=== PATIENT | female | born 1995 | race Caucasian/White ===

== ENCOUNTER 2017-07-11 16:59 | Emergency (ER) | payer OTHER ==
[2017-07-11] MEDS ORDERED: NS 1,000 ML IV ONE (17:31)
--- NOTE | 2017-07-11 17:31 | EDPHY ---
General Time Seen by Provider: 07/11/17 17:23 Narrative: CHIEF COMPLAINT: Pelvic pain, vaginal bleeding HISTORY OF PRESENT ILLNESS: Patient presents with complaints of 4 hr pelvic pain and 1 hr of vaginal bleeding. She has bilateral lower pelvic pain, right greater than left. The pain is consistent with previous episodes of ovarian cyst rupturing. Source with palpation and movement. It is moderate to severe. Does not radiate. No fever chills. Chronic nausea without any new vomiting. She also has 1 hr of heavy vaginal bleeding. Today was the start of her menses, but it is a heavier flow than typical. She has no vaginal pain or discharge prior to this. No trauma, injury or instrumentation. No other associated complaints or modifying factors. NPO as of noon today REVIEW OF SYSTEMS: Ten systems reviewed and are negative unless otherwise noted in the HPI PCP: Dr. Barkley in [place], [place] SPECIALISTS: None PAST MEDICAL HISTORY: Ovarian cyst, depression, anxiety PAST SURGICAL HISTORY: No surgical history SOCIAL HISTORY: Nonsmoker. Occasional alcohol. Occasional marijuana use. Lives and works in [facility] FAMILY HISTORY: Noncontributory EXAMINATION General Appearance: Alert, no distress. Well-nourished and well-developed. Head: normocephalic, atraumatic Eyes: Pupils equal and round, no conjunctival pallor or injection ENT, Mouth: Mucous membranes moist Neck: Normal inspection, supple, non-tender Respiratory: Lungs are clear to auscultation. No wheezing, rhonchi or crackles Cardiovascular: Regular rate and rhythm. No murmur Gastrointestinal: Abdomen is soft and nondistended. There is tenderness of the lower quadrants and suprapubic abdomen. No tympany. No rigidity. No guarding. Negative McBurney. Negative obturator. Negative heel jar. No CVA tenderness. Back: non-tender, no bony abnormalities Neurological: A&O, nonfocal, normal gait Skin: Warm and dry, no rash. Multiple tattoos. No petechiae or purpura Extremities: Nontender, no pedal edema Psychiatric: Mood and affect normal DIFFERENTIAL DIAGNOSES: Including but not limited to ovarian cyst, ovarian torsion, appendicitis, enteritis, colitis, diverticulitis, pelvic inflammatory disease, interstitial cystitis, UTI MDM: 5:30 p.m. Pelvic pain right greater than left with vaginal bleeding heavier than typical for her menses. She does have a history of ovarian cyst and she feels this is the same. Abdominal exam reveals tenderness in right lower quadrant and suprapubic. She has no evidence of acute abdomen. Vital signs are within normal limits. No CVA tenderness. I have ordered laboratory studies, IV fluid , pelvic ultrasound to rule out torsion and appendix ultrasound. She is resting comfortably in no acute distress. 5:55 p.m. Laboratory studies are all within normal limits. Ultrasounds are pending. 6:40 p.m. Notified by radiologist Dr. Blackwood. Ultrasounds are negative for any significant findings. There are multiple follicular cyst. There is no free fluid in the pelvis. No fluid surrounding the appendix. There is some lymphadenopathy appreciated. 6:55 p.m. I have re-evaluated the patient. She is resting comfortably with minimal pain. We discussed the laboratory studies and ultrasound findings. We discussed further imaging with CT scan. She does not want a CT scan at this time. I do feel that this is reasonable as I do not have a high suspicion for appendicitis and she has a nonsurgical abdominal examination. We discussed discharge home with short course of pain medication and nausea medication. We discussed strict ED precautions. I would like her to return to the emergency department in 12 hr if her symptoms are not completely gone. She informed that she will be driving back to [facility] and I instructed her to go to the emergency department there if she wakes with any pain in the morning. She is comfortable this plan and discharged home stable condition. SUPERVISION: Patient was independently examined, but I discussed the case with my secondary supervising physician Dr. Mijares - Diagnostics Imaging Results: Imaging Impressions Abdomen Ultrasound 07/11/17 17:31 Impression: 1. Negative limited right lower quadrant ultrasound, specifically, there are no secondary findings to support a clinical diagnosis of acute appendicitis. 2. Query mesenteric adenitis. Results called and discussed with Slade Galicia PA-C on 07/11/2017 at 18:37 Pelvic/Renal Ultrasound 07/11/17 17:31 Impression: Normal pelvic ultrasound with no evidence for ovarian torsion. Results called and discussed with Slade NORTH on 07/11/2017 at 18:41 - History Smoking Status: Former smoker - Objective Vital Signs: Initial Vital Signs Temperature (C) 98.1 F 07/11/17 17:09 Heart Rate 83 07/11/17 17:09 Respiratory Rate 17 07/11/17 17:09 Blood Pressure 104/65 07/11/17 17:09 O2 Sat (%) 99 07/11/17 17:09 O2 Delivery Mode Room Air Allergies/Adverse Reactions: No Known Allergies Allergy (Unverified 07/11/17 17:09) Home Medications: Medication Instructions Recorded Hydrocodone/APAP 5/325 [[place] 1 - 2 tab PO Q4H PRN #7 tab 07/11/17 5/325 (*)] Lexapro 07/11/17 Promethazine HCl [Phenergan 25mg 25 mg PO Q8 PRN #7 tab 07/11/17 (*)] Laboratory Results: Laboratory Results 07/11/17 17:25 07/11/17 17:25 07/11/17 07/11/17 07/11/17 18:00 17:25 17:25 WBC RBC Hgb Hct MCV MCH MCHC RDW Plt Count MPV Neut % (Auto) Lymph % (Auto) Boyd % (Auto) Eos % (Auto) Baso % (Auto) Nucleat RBC Rel Count Absolute Neuts (auto) Absolute Lymphs (auto) Absolute Monos (auto) Absolute Eos (auto) Absolute Basos (auto) Absolute Nucleated RBC Immature Gran % Immature Gran # Sodium 138 mEq/L mEq/L (135-145) Potassium 4.2 mEq/L mEq/L (3.5-5.2) Chloride 105 mEq/L mEq/L (97-110) Carbon Dioxide 23 mEq/l mEq/l (22-31) Anion Gap 10 mEq/L mEq/L (8-16) BUN 12 mg/dL mg/dL (7-23) Creatinine 0.8 mg/dL mg/dL (0.6-1.0) Estimated GFR > 60 Glucose 84 mg/dL mg/dL (70-100) Calcium 9.7 mg/dL mg/dL (8.5-10.4) Total Bilirubin 0.4 mg/dL mg/dL (0.1-1.4) Conjugated Bilirubin 0.2 mg/dL mg/dL (0.0-0.5) Unconjugated Bilirubin 0.2 mg/dL mg/dL (0.0-1.1) AST 28 IU/L IU/L (14-46) ALT 35 IU/L IU/L (9-52) Alkaline Phosphatase 56 IU/L IU/L (38-126) Total Protein 7.7 g/dL g/dL (6.3-8.2) Albumin 4.7 g/dL g/dL (3.5-5.0) Lipase 55 IU/L IU/L (23-300) Beta HCG, Qual Urine Color PALE YELLOW Urine Appearance CLEAR Urine pH 6.0 (5.0-7.5) Ur Specific Lamar 1.011 (1.002-1.030) Urine Protein NEGATIVE (NEGATIVE) Urine Ketones NEGATIVE (NEGATIVE) Urine Blood NEGATIVE (NEGATIVE) Urine Nitrate NEGATIVE (NEGATIVE) Urine Bilirubin NEGATIVE (NEGATIVE) Urine Urobilinogen NEGATIVE EU EU (0.2-1.0) Ur Leukocyte Esterase NEGATIVE (NEGATIVE) Urine RBC NONE SEEN /hpf /hpf (0-3) Urine WBC NONE SEEN /hpf /hpf (0-3) Ur Epithelial Cells TRACE /lpf /lpf (NONE-1+) Urine Mucus TRACE /lpf /lpf (NONE-1+) Urine Glucose NEGATIVE (NEGATIVE) 07/11/17 07/11/17 17:25 17:25 WBC 7.99 10^3/uL 10^3/uL (3.80-9.50) RBC 4.14 10^6/uL L 10^6/uL (4.18-5.33) Hgb 13.1 g/dL g/dL (12.6-16.3) Hct 39.4 % % (38.0-47.0) MCV 95.2 fL fL (81.5-99.8) MCH 31.6 pg pg (27.9-34.1) MCHC 33.2 g/dL g/dL (32.4-36.7) RDW 12.0 % % (11.5-15.2) Plt Count 295 10^3/uL 10^3/uL (150-400) MPV 10.1 fL fL (8.7-11.7) Neut % (Auto) 56.1 % % (39.3-74.2) Lymph % (Auto) 31.3 % % (15.0-45.0) Boyd % (Auto) 8.3 % % (4.5-13.0) Eos % (Auto) 3.1 % % (0.6-7.6) Baso % (Auto) 0.9 % % (0.3-1.7) Nucleat RBC Rel Count 0.0 % % (0.0-0.2) Absolute Neuts (auto) 4.49 10^3/uL 10^3/uL (1.70-6.50) Absolute Lymphs (auto) 2.50 10^3/uL 10^3/uL (1.00-3.00) Absolute Monos (auto) 0.66 10^3/uL 10^3/uL (0.30-0.80) Absolute Eos (auto) 0.25 10^3/uL 10^3/uL (0.03-0.40) Absolute Basos (auto) 0.07 10^3/uL 10^3/uL (0.02-0.10) Absolute Nucleated RBC 0.00 10^3/uL 10^3/uL (0-0.01) Immature Gran % 0.3 % % (0.0-1.1) Immature Gran # 0.02 10^3/uL 10^3/uL (0.00-0.10) Sodium Potassium Chloride Carbon Dioxide Anion Gap BUN Creatinine Estimated GFR Glucose Calcium Total Bilirubin Conjugated Bilirubin Unconjugated Bilirubin AST ALT Alkaline Phosphatase Total Protein Albumin Lipase Beta HCG, Qual NEGATIVE Urine Color Urine Appearance Urine pH Ur Specific Lamar Urine Protein Urine Ketones Urine Blood Urine Nitrate Urine Bilirubin Urine Urobilinogen Ur Leukocyte Esterase Urine RBC Urine WBC Ur Epithelial Cells Urine Mucus Urine Glucose Medications Given: Discontinued Medications Sodium Chloride (Ns) 1,000 mls @ 0 mls/hr IV EDNOW ONE; Wide Open PRN Reason: Protocol Stop: 07/11/17 17:32 Last Admin: 07/11/17 17:35 Dose: 1,000 mls Ketorolac Tromethamine (Toradol) 30 mg IVP EDNOW ONE Stop: 07/11/17 18:00 Last Admin: 07/11/17 18:20 Dose: 30 mg Departure - Departure Disposition: Home, Routine, Self-Care Clinical Impression: Pelvic pain in female Condition: Good Instructions: Ovarian Cyst (ED), Pelvic Pain in Women (ED), Mesenteric Adenitis (ED) Additional Instructions: 1. Strict ED precautions. If you are not 100% better in 12 hr return to the emergency department 2. Medication as prescribed as needed 3. Follow up with primary care physician Raven Duncan Referrals: THELMA BARKLEY [Other] - As per Instructions Stand Alone Forms: Work Excuse Prescriptions: Hydrocodone/APAP 5/325 [[place] 5/325 (*)] 1 - 2 tab PO Q4H PRN #7 tab PRN Reason: Pain, Moderate Promethazine HCl [Phenergan 25mg (*)] 25 mg PO Q8 PRN #7 tab PRN Reason: Nausea/Vomiting, Use 1st
[2017-07-11 17:33] LABS: PLATELET COUNT 295 10^3/uL (150-400)
[2017-07-11] MEDS ORDERED: KETOROLAC 30 MG/1 ML SDV IVP ONE (17:59)
[2017-07-11] MEDS ORDERED: KETOROLAC 15 MG/1 ML SDV ONE (18:16)
[2017-07-11 18:22] VITALS: BP 96/53; PULSE 62; RESP 18; O2SAT 97
[2017-07-11 19:12] VITALS: TEMP 98.6
== END 2017-07-11 19:20 | disposition home or self-care (01) ==
DX: R10.2 Pelvic and perineal pain (principal); E86.9 Volume depletion, unspecified; Z87.891 Personal history of nicotine dependence
CPT/HCPCS: 96374; J1885